=== PATIENT | female | born 1945 | race Caucasian/White ===

== ENCOUNTER 2017-08-21 16:59 | Emergency (ER) | payer MEDICARE ==
[2017-08-21 18:25] VITALS: BP 166/90
--- NOTE | 2017-08-21 21:09 | ED ---
Brendan Nolen Tiffany, scribed for Minnie Da Silva MD on 08/21/17 at 1806 . Throat Pain/Nasal Congestion - HPI Summary HPI Summary: The patient is a 72 year old female presenting to [facility] accompanied by with a chief complaint of left eye redness after being hit by "skinny" branch while trimming another branch with a "giant" clipper at 16:00 today. Pt states the branch just sideswiped her eye. States it did not kickback with any force, and did not puncture or poke her eye. The patient rates the pain 2/10 in severity. Symptoms aggravated by nothing. Symptoms alleviated by nothing. Patient reports left eye tearing up, but no bleeding or drainage from the eye. She has eye redness that has progressed from bright red to darker red. Patient denies vision changes, epistaxis, tasting or swallowing blood, and headache. Patient is otherwise healthy. She does not take any medication. Hasn't seen an eye doctor for 20 years. Pt states she has limited vision in both eyes, and "would flunk" the DMV eye test, but this has developed gradually, and pt has not sought medical attention for this. She does not wear glasses, and did not have any eye protection on when she was trimming the branch. - History of Current Complaint Chief Complaint: EDEyeProblem Time Seen by Provider: 08/21/17 17:19 Hx Obtained From: Patient, Family/Merchandise Planner - is with pt. Onset/Duration: Sudden Onset, Lasting Hours - 16:00 today, Still Present Severity: Moderate Associated Signs And Symptoms: Positive: Negative - vision changes, blood or drainage from the eye, epistaxis, tasting or swallowing blood, headache, sensation that branch poked her left eye - Allergies/Home Medications Allergies/Adverse Reactions: Allergies Allergy/AdvReac Type Severity Reaction Status Date / Time No Known Allergies Allergy Verified 08/21/17 17:01 PMH/Surg Hx/FS Hx/Imm Hx Previously Healthy: Yes Endocrine/Hematology History: Denies: Hx Diabetes Cardiovascular History: Denies: Hx Hypertension Respiratory History: Denies: Hx Asthma Sensory History: Reports: Hx Vision Problem - by pt's own report, not diagnosed , would "flunk" DMV vision test Denies: Hx Contacts or Glasses Opthamlomology History: Denies: Hx Contacts or Glasses - Surgical History Surgery Procedure, Year, and Place: Tonsillectomy - Immunization History Immunizations Up to Date: Yes Infectious Disease History: No Infectious Disease History: Denies: Traveled Outside the [place] in Last 30 Days - Family History Known Family History: Positive: Other - Patient is unsure if glaucoma or cataracts dxs are in her family - Social History Lives: With Family Alcohol Use: Rare Hx Substance Use: No Substance Use Type: Reports: None Hx Tobacco Use: No Smoking Status (MU): Never Smoked Tobacco Review of Systems Eyes: Negative - Vision changes, sensation that branch poked left eye, bleeding from left eye Positive: Blurred Vision - chronic, not worsened today, Erythema - has progressed from bright red to darker red in her left conjunctiva, Other - left eye tearing up ENT: Negative - tasting or swallowing blood Negative: Epistaxis Skin: Negative Negative: Headache Psychological: Normal All Other Systems Reviewed And Are Negative: Yes Physical Exam - Summary Physical Exam Summary: Appearance: Well-appearing, no pain distress, thin Skin: Warm, color reflects adequate perfusion Head: No evidence of trauma except to left eye Eyes: Left eye has entire subconjunctival area with deep red hemorrhage. Lower outer aspect of left eye hemorrhage is bulging beyond iris, no hyphema. The pupils are 2-mm and not reactive. Patient has count fingers vision intact. Peripheral vision is intact by confrontation. EOM is intact. Unable to visualize fundi due to small pupils and poor patient cooperation. Eye pressure appears intact by palpation, neither high nor low. No drainage from the eye. Orbital rims are intact by palpation. Patient does not allow further exam. Patient does agree to visual acuity, see nurse's note. Patient states vision is no worse than previous. Patient is legally blind by eye chart criteria (20/200). ENT: Normal inspection, pharynx clear Neck: Supple, no nodes, no JVD. Respiratory: Lungs clear, Normal breath sounds, no respiratory distress Cardio: RRR, No murmur, pulses normal, brisk capillary refill Musculoskeletal: Strength Intact/ ROM intact Psychological: Normal Neuro: Alert, muscle tone normal, no focal deficit Triage Information Reviewed: Yes Vital Signs On Initial Exam: Initial Vitals Temp Pulse Resp BP Pulse Ox 98.7 F 115 14 154/75 97 08/21/17 17:01 08/21/17 17:01 08/21/17 17:01 08/21/17 17:01 08/21/17 17:01 Vital Signs Reviewed: Yes Diagnostics - Vital Signs Vital Signs Temp Pulse Resp BP Pulse Ox 08/21/17 17:01 98.7 F 115 14 154/75 97 - Laboratory Lab Statement: Any lab studies that have been ordered have been reviewed, and results considered in the medical decision making process. Re-Evaluation - Re-Evaluation First Eval Re-Evaluation Time: 18:10 Change: Unchanged Comment: Patient does not want an maternal fetal physician consult or a referral to an maternal fetal physician. States that she will seek out her own maternal fetal physician care. Second Eval Re-Evaluation Time: 18:32 Change: Unchanged Comment: Patient was asked to sign AMA form and discharge paperwork. Patient's also signed. Patient answered all questions asked. EENT Course/Dx - Course Course Of Treatment: High blood pressure noted at this visit. After visual acuity exam, patient refused an maternal fetal physician consult or referral to an maternal fetal physician, and states that she will seek out her own maternal fetal physician care. She was advised that her elevated blood pressure could worsen the bleeding in her left eye. Patient will be discharged against medical advice. She agreed to sign AMA form and discharge paperwork. - Diagnoses Provider Diagnoses: Elevated blood-pressure reading without diagnosis of hypertension, Traumatic injury of globe of left eye, Subconjunctival hemorrhage of left eye, Left against medical advice Discharge - Sign-Out/Discharge Documenting (check all that apply): Discharge - Discharge Plan Condition: Stable Disposition: AGAINST MEDICAL ADVICE Patient Education Materials: Subconjunctival Hemorrhage (ED), Hypertension (ED) Referrals: Corina Benitez MD [Primary Care Provider] - 2 Days Additional Instructions: Dr Da Silva recommends that you see an maternal fetal physician as soon as possible. There is no maternal fetal physician on duty at [facility] today, and you have signed against medical advice that you did not want Dr. Da Silva to consult an maternal fetal physician about your care, or transfer you to a facility that has an maternal fetal physician leather production machine operator now. Your blood pressure is elevated today, and can influence the amount of bleeding , so Dr. Da Silva also recommends that you see Dr. Cerda as soon as possible to evaluate your blood pressure. Return to the ER if you have any new or worsening symptoms. - Billing Disposition and Condition Condition: STABLE Disposition: AMA The documentation as recorded by the Brendan padilla Tiffany accurately reflects the service I personally performed and the decisions made by , Minnie Da Silva MD.
== END 2017-08-21 18:24 | disposition left against medical advice (07) ==
LOC: ED 16:59
DX: S00.12XA Contusion of left eyelid and periocular area, initial encounter (principal); S00.212A Abrasion of left eyelid and periocular area, initial encounter; W22.8XXA Striking against or struck by other objects, initial encounter; Y92.9 Unspecified place or not applicable; R03.0 Elevated blood-pressure reading, without diagnosis of hypertension; Z53.21 Procedure and treatment not carried out due to patient leaving prior to being seen by health care provider
CPT/HCPCS: 99282